=== PATIENT | male | born 1970 | race American Indian/Alaskan Native ===

== ENCOUNTER 2019-08-03 17:33 | Emergency (ER) | payer OTHER ==
[2019-08-03 17:51] VITALS: BP 154/88
--- NOTE | 2019-08-03 18:02 | Event Note ---
ED Screening Note Date of service: 08/03/19 Time: 17:49 ED Screening Note: This is a 49 y.o. M. that presents to the ER with swelling and rash to forehead for 4 days. Denies pain, loc, numbness or tingling Reports running into a wooden door 4 days ago at home. This initial assessment/diagnostic orders/clinical plan/treatment(s) is/are subject to change based on patients health status, clinical progression and re- assessment by fellow clinical providers in the ED. Further treatment and workup at subsequent clinical providers discretion. Patient/guardian urged not to elope from the ED as their condition may be serious if not clinically assessed and managed. Initial orders include:
--- NOTE | 2019-08-03 20:33 | Event Note ---
Face to Face: For this encounter I have reviewed the PA/SHEEP HERDER documentation, treatment plan, medical decision making, and I had face to face time with this patient. I evaluated Mr. Miranda alongside my colleague. With history of trauma differential diagnosis includes hematoma, cellulitis, contact dermatitis. Also patient explained that he applied tea tree oil to the area for possible ring worm. Concerning for allergic contact dermatitis. I have suggested that the patient removed the substance with soapy water. Recommend prescriptions were Bactrim and hydrocortisone cream.
--- NOTE | 2019-08-03 20:47 | Emergency Department Report ---
ED General Adult HPI - General Chief complaint: Head Injury Stated complaint: FALL INJURY/KNOT ON HEAD/PAIN Time Seen by Provider: 08/03/19 17:49 Source: patient Mode of arrival: Ambulatory Limitations: No Limitations - History of Present Illness Initial comments: 49 yo BM states that he walked into a door 4 days ago and that it started to feel irritated. He states that he placed Tea tree oil solution on his forehead and it made his head itch and swell. -: Gradual, days(s) (4) Location: head, face Radiation: non-radiation Severity scale (0 -10): 3 Quality: other (itching and swelling) Improves with: none Worsens with: other (tea tree oil solution) Associated Symptoms: denies other symptoms. denies: confusion, chest pain Treatments Prior to Arrival: none - Related Data Previous Rx's Medication Instructions Recorded Last Taken Type Azithromycin [Zithromax TAB] 500 mg PO QDAY #3 tablet 09/07/16 Unknown Rx Sulfamethoxazole/Trimethoprim 1 each PO BID 7 Days #14 tablet 08/03/19 Unknown Rx [Bactrim 400-80 mg Tablet] Allergies Allergy/AdvReac Type Severity Reaction Status Date / Time No Known Allergies Allergy Verified 08/03/19 17:34 ED Review of Systems ROS: Stated complaint: FALL INJURY/KNOT ON HEAD/PAIN Other details as noted in HPI Constitutional: denies: diaphoresis, fever, malaise, weakness Eyes: denies: eye pain, eye discharge, vision change ENT: denies: as per HPI, ear pain, throat pain Respiratory: denies: cough, orthopnea, shortness of breath Cardiovascular: denies: chest pain, palpitations, dyspnea on exertion Endocrine: no symptoms reported Gastrointestinal: denies: abdominal pain, nausea, vomiting Genitourinary: denies: urgency, dysuria, frequency Skin: rash, change in color, pruritus Neurological: denies: headache, weakness, numbness Psychiatric: denies: anxiety, depression, auditory hallucinations Hematological/Lymphatic: denies: easy bleeding, easy bruising, swollen glands ED Past Medical Hx - Past Medical History Hx Hypertension: No Hx CVA: No Hx Heart Attack/AMI: No Hx Congestive Heart Failure: No Hx Diabetes: No Hx Deep Vein Thrombosis: No Hx Pulmonary Embolism: No Hx GERD: No Hx Liver Disease: No Hx Renal Disease: No Hx Sickle Cell Disease: No Hx Arthritis: No Hx Headaches / Migraines: No Hx Seizures: No Hx Kidney Stones: No Hx Psychiatric Treatment: No Hx Asthma: No Hx COPD: No Hx Tuberculosis: No Hx Dementia: No Hx HIV: No - Surgical History Hx Coronary Stent: No Hx Open Heart Surgery: No Hx Pacemaker: No Hx Internal Defibrillator: No Hx Cholecystectomy: No Hx Appendectomy: No Hx Breast Surgery: No - Social History Smoking Status: Never Smoker Substance Use Type: Alcohol - Medications Home Medications: Home Medications Medication Instructions Recorded Confirmed Last Taken Type Azithromycin [Zithromax TAB] 500 mg PO QDAY #3 tablet 09/07/16 Unknown Rx Sulfamethoxazole/Trimethoprim 1 each PO BID 7 Days #14 tablet 08/03/19 Unknown Rx [Bactrim 400-80 mg Tablet] ED Physical Exam - General Limitations: No Limitations General appearance: alert, in no apparent distress, appears intoxicated - Head Head exam: Present: other (swelling, warmth and erythema of the forehead) - Eye Eye exam: Present: normal appearance, PERRL, EOMI - ENT ENT exam: Present: normal exam, normal orophraynx - Neck Neck exam: Present: normal inspection. Absent: tenderness - Respiratory Respiratory exam: Present: normal lung sounds bilaterally. Absent: respiratory distress, wheezes - Cardiovascular Cardiovascular Exam: Present: regular rate, normal rhythm, normal heart sounds - GI/Abdominal GI/Abdominal exam: Present: soft. Absent: distended, tenderness - Rectal Rectal exam: Present: deferred - Extremities Exam Extremities exam: Present: normal inspection, full ROM - Back Exam Back exam: Present: normal inspection, full ROM - Neurological Exam Neurological exam: Present: alert, altered, oriented X3 - Psychiatric Psychiatric exam: Present: normal affect, normal mood. Absent: anxious, flat affect - Skin Skin exam: Present: warm, rash ( skin irritation present at forehead), erythema, urticaria, other (warm) ED Course Vital Signs 08/03/19 17:50 Temperature 98.3 F Pulse Rate 83 Respiratory 18 Rate Blood Pressure 154/88 O2 Sat by Pulse 95 Oximetry ED Medical Decision Making - Medical Decision Making 49 yo BM states that he walked into a door 4 days ago and that it started to feel irritated. He states that he placed Tea tree oil solution on his forehead and it made his head itch and swell. Pt was informed that his exam suggests allergic contact dermatitis with cellulitis present. He was instructed to take antibiotics as prescribed in addition to low dose otc hydrocortisone cream. He was further instructed to use low dose hydrocortisone up two times daily. Pt was further instructed to not allow cream to contact eyes and to f/u with his PCP in 2-3 days. Critical care attestation.: If time is entered above; I have spent that time in minutes in the direct care of this critically ill patient, excluding procedure time. ED Disposition Clinical Impression: Dermatitis, Cellulitis Disposition: TO HOME OR SELFCARE Is pt being admited?: No Does the pt Need Aspirin: No Condition: Stable Additional Instructions: Pt was informed that his exam suggests allergic contact dermatitis with cellulitis present. He was instructed to take antibiotics as prescribed in addition to low dose otc hydrocortisone cream. He was further instructed to use low dose hydrocortisone up two times daily. Pt was further instructed to not allow cream to contact eyes and to f/u with his PCP in 2-3 days Prescriptions: Sulfamethoxazole/Trimethoprim [Bactrim 400-80 mg Tablet] 1 each PO BID 7 Days #14 tablet Referrals: [facility] [Outside] - 3-5 Days Time of Disposition: 20:55 Print Language: [place]
== END 2019-08-03 21:05 | disposition home or self-care (01) ==
LOC: ED 17:33
DX: L03.811 Cellulitis of head [any part, except face] (principal); Z79.899 Other long term (current) drug therapy
CPT/HCPCS: 99282